=== PATIENT | female | born 1940 | race Caucasian/White ===

== ENCOUNTER 2022-10-31 09:32 | Emergency (ER) | payer MEDICARE ==
[~2022-10-31] VITALS: Ht 165.1 cm; Wt 66.2 kg
[2022-10-31] MEDS ORDERED: CALCITRIOL0.25 MC4 PO (10:22)
[2022-10-31] MEDS ORDERED: ALLOPURINOL100 M1 PO (10:22)
[2022-10-31] MEDS ORDERED: CATAPRES-TTS 11 EAC1 TOP (10:22)
[2022-10-31] MEDS ORDERED: PREGABALIN75 MG PO (10:22)
[2022-10-31] MEDS ORDERED: SITA100T2 PO (10:22)
[2022-10-31] MEDS ORDERED: AMLODIPINE BESY10 MG PO (10:22)
[2022-10-31] MEDS ORDERED: HYDCHL25 PO (10:23)
== END 2022-10-31 11:30 | disposition home or self-care (01) ==
LOC: ER 09:32
DX: M25.561 Pain in right knee (principal); X50.1XXA Overexertion from prolonged static or awkward postures, initial encounter; Z88.2 Allergy status to sulfonamides; Z79.899 Other long term (current) drug therapy
CPT/HCPCS: 99283

== ENCOUNTER 2023-01-24 17:17 | Inpatient (IN) | payer MEDICARE ==
[~2023-01-24] VITALS: Ht 162.6 cm; Wt 64.0 kg
[~2023-01-24 17:17] MED LIST: ALLOPURINOL100 M1 PO; AMLODIPINE BESY10 MG PO; CALCITRIOL0.25 MC4 PO; CATAPRES-TTS 11 EAC1 PO; HYDCHL25 PO; PREGABALIN75 MG PO; SITA100T2 PO
[2023-01-24 19:04] LABS: BASOPHILS ABSOLUTE AUTO 0.03 K/mm3 (0.00-0.23); BASOPHILS PERCENT AUTO 0 % (0-2); EOSINOPHILS ABSOLUTE AUTO 0.21 K/mm3 (0.00-0.68); EOSINOPHILS PERCENT AUTO 2 % (0-6); Hemoglobin 10.9 g/dL (11.5-16.0); IMMATURE GRAN ABSOLUTE AUTO 0.03 K/mm3 (0.00-0.10); IMMATURE GRAN PERCENT AUTO 0 % (0-1); LYMPHOCYTES ABSOLUTE AUTO 1.94 K/mm3 (0.84-5.20); LYMPHOCYTES PERCENT AUTO 21 % (21-46); MONOCYTES ABSOLUTE AUTO 0.95 K/mm3 (0.16-1.47); MONOCYTES PERCENT AUTO 10 % (4-13); Mean Corpuscular HGB 30.3 pg (26.0-34.0); Mean Corpuscular HGB Conc 32.1 g/dL (31.5-36.5); Mean Corpuscular Volume 94 fL (80-100); Mean Platelet Volume 10.8 fL (9.1-12.4); NEUTROPHILS ABSOLUTE AUTO 6.25 K/mm3 (1.96-9.15); NEUTROPHILS PERCENT AUTO 67 % (41-73); Platelet Count 331 K/mm3 (150-400); RDW Coefficient Variation 15.6 % (11.7-14.2); White Blood Cell Count 9.41 K/mm3 (4.00-11.30)
[2023-01-24 19:34] LABS: Albumin, Blood 3.2 g/dL (3.4-5.0); Albumin/Globulin Ratio 0.8 (0.8-1.8); Bilirubin, Total 0.5 mg/dL (0.1-1.0); Bun/Creatinine Ratio 23.7 (12.0-20.0); Calcium, Blood 7.9 mg/dL (8.5-10.1); Creatinine, Blood 1.77 mg/dL (0.40-1.00); Globulin, Blood 4.2 g/dL (2.2-4.0); Potassium, Blood 4.5 mmol/L (3.5-5.5); Total Protein, Blood 7.4 g/dL (6.4-8.2)
[2023-01-24] MEDS ORDERED: Simvastatin40 MG PO (20:42)
[2023-01-24] MEDS ORDERED: LOSA25 PO (20:43)
[2023-01-24 21:05] LABS: International Normalized Ratio 1.04; Prothrombin Time Results 10.9 Sec (9.7-11.5)
[2023-01-24 21:39] LABS: Anti-Xa UFH, PHA Monitoring <0.10 IU/mL
[2023-01-24 22:28] VITALS: BP 128/80
[2023-01-24] MEDS ORDERED: CATAPRES0.1 MG PO (23:16)
[2023-01-25] VITALS (12 sets, daily range): BP systolic 11–127; BP diastolic 57–73
[2023-01-25 04:50] LABS: Hematocrit 33.1 % (33.0-51.0); Hemoglobin 10.4 g/dL (11.5-16.0); Mean Corpuscular HGB 29.6 pg (26.0-34.0); Mean Corpuscular HGB Conc 31.4 g/dL (31.5-36.5); Mean Corpuscular Volume 94 fL (80-100); Mean Platelet Volume 10.7 fL (9.1-12.4); Platelet Count 283 K/mm3 (150-400); RDW Coefficient Variation 15.3 % (11.7-14.2); Red Blood Cell Count 3.51 M/mm3 (3.80-5.20); White Blood Cell Count 7.17 K/mm3 (4.00-11.30)
--- NOTE | 2023-01-25 05:02 | NUR ---
TRANSFER OF CARE NOTE/SHIFT SUMMARY RECEIVED REPORT FROM ED RN WENDY ROMERO, PT SHORTLY ARRIVED TO PCU 14 ~ 2224 ON 01/24/23. ABLE TO STAND UP AND TRANSFER FROM [facility] TO HOSPITAL BED W/O ASSISTANCE. A/Ox4 AND COOPERATIVE WITH CARE PROVIDED BY MEMBERS OF STAFF. ANSWERS QUESTIONS APPROPRIATELY AND ABLE TO MAKE HER NEEDS KNOWN. CARDIAC DUNBAR, IN SR 70-80'S WITH C/O CP OR PRESSURE. SBP STABLE IN THE 120'S. RESPIRATORY DUNBAR, ARRIVED ON RA MAINTAINING SPO2 >94% WITH NO C/O SOB OR DYSPNEA. PT ON HEPARIN GTT THAT WAS STARTED IN THE ED. RATE RUNNING ORDERED VIA EMAR. DAYA JAVIER UPON ARRIVAL TO PCU. SHIFT SUMMARY NO ACUTE EVENTS SINCE ADMISSION. PT REMAINS A/Ox4 AND ABLE TO MAKE HER NEEDS KNOWN. HEPARIN GTT REMAINS ON AND IS RUNNING ORDERED VIA EMAR. NO C/O OF CP OR PRESSURE T/O THE NIGHT. REMAINS ON RA WITH NO C/O SOB OR DYSPNEA T/O THE NIGHT. UNABLE TO CALL IN CARDIOLOGY CONSULT IN AT THIS TIME DUE TO OLD CARDIOLOGY PHONE NUMBER NOT WORKING. CARDIOPULMONARY TECHNOLOGIST LAUREN MADE AWARE OF ISSUES WITH CONSULT. WILL PASS INFORMATION ALONG TO DAY SHIFT IN ORDER TO ENURE CONSULT IS CALLED IN. NO NEW ORDERS AT THIS TIME, WILL REPORT TO ONCOMING RN. YAYA STAPLETON T/O THE SHIFT
[2023-01-25 05:11] LABS: Bun/Creatinine Ratio 24.9 (12.0-20.0); Calcium, Blood 7.7 mg/dL (8.5-10.1); Creatinine, Blood 1.77 mg/dL (0.40-1.00); Magnesium, Blood 2.4 mg/dL (1.6-2.4); Potassium, Blood 3.9 mmol/L (3.5-5.5)
--- NOTE | 2023-01-25 07:15 | NUR ---
Bedside report received from SHILPA Cramer. Pt is awake, alert, with at the bedside. PT reports no chest pain or other symptoms throughout the night. Instructed to please call staff with call light if she has any discomfort, dyspnea, etc. She said that she would.
--- NOTE | 2023-01-25 07:24 | NUR ---
Dr. Longo here to see the patient.
[2023-01-25 07:32] LABS: CHOL/HDL RATIO 2.1; Cholesterol 124 mg/dL (50-200); HDL Cholesterol 59 mg/dL (>39); LDL/HDL RATIO 0.7; Low Density Lipoprotein Chol 39 mg/dL (0-110); Triglycerides 131 mg/dL (30-160); Very Low Density Lipoprot Chol 26 mg/dL (6-32)
--- NOTE | 2023-01-25 08:04 | NUR ---
Tech is here to do the echocardiogram.
--- NOTE | 2023-01-25 10:49 | NUR ---
EDUCATION NOTE PATIENT WAS VISITED BY THE PROVIDER AT BEDSIDE. THE PATIENT WAS GIVEN AN EXTENSIVE EDUCATION ON UT, CHF, CATH, AND RISK FACTORS ASSOCIATED WITH CARDIAC, VASCULAR, AND ARTERIAL CATH. THE PATIENT SEEMED TO UNDERSTAND CONCEPTS WELL.
--- NOTE | 2023-01-25 11:31 | NUR ---
Pt is gone to heart center for angiogram. Called pharmacy to notify that heparin gtt is stopped.
--- NOTE | 2023-01-25 13:38 | NUR ---
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
--- NOTE | 2023-01-25 18:46 | NUR ---
The pt is lying in bed, flat, and right groin site and right radial site are without bleeding, hematoma, swelling nor pain. She has a purewick in place as the bedrest continues until 2200. She reports no pain. Ate dinner with a good appetite and able to take oral medications without any difficulty.
[2023-01-26 00:10] VITALS: BP 130/62
[2023-01-26 04:01] VITALS: BP 126/66
[2023-01-26 04:04] LABS: BASOPHILS ABSOLUTE AUTO 0.03 K/mm3 (0.00-0.23); BASOPHILS PERCENT AUTO 0 % (0-2); EOSINOPHILS ABSOLUTE AUTO 0.24 K/mm3 (0.00-0.68); EOSINOPHILS PERCENT AUTO 3 % (0-6); Hematocrit 31.5 % (33.0-51.0); Hemoglobin 10.1 g/dL (11.5-16.0); IMMATURE GRAN ABSOLUTE AUTO 0.02 K/mm3 (0.00-0.10); IMMATURE GRAN PERCENT AUTO 0 % (0-1); LYMPHOCYTES ABSOLUTE AUTO 1.08 K/mm3 (0.84-5.20); LYMPHOCYTES PERCENT AUTO 14 % (21-46); MONOCYTES ABSOLUTE AUTO 0.62 K/mm3 (0.16-1.47); MONOCYTES PERCENT AUTO 8 % (4-13); Mean Corpuscular HGB Conc 32.1 g/dL (31.5-36.5); Mean Corpuscular Volume 94 fL (80-100); Mean Platelet Volume 10.3 fL (9.1-12.4); NEUTROPHILS ABSOLUTE AUTO 5.62 K/mm3 (1.96-9.15); NEUTROPHILS PERCENT AUTO 74 % (41-73); Platelet Count 262 K/mm3 (150-400); RDW Coefficient Variation 15.3 % (11.7-14.2); RDW Standard Deviation 52.3 fL (35.1-46.3); Red Blood Cell Count 3.37 M/mm3 (3.80-5.20); White Blood Cell Count 7.61 K/mm3 (4.00-11.30)
[2023-01-26 04:32] LABS: Calcium, Blood 7.7 mg/dL (8.5-10.1); Creatinine, Blood 1.64 mg/dL (0.40-1.00); Potassium, Blood 3.9 mmol/L (3.5-5.5)
--- NOTE | 2023-01-26 06:29 | NUR ---
Both right radial and groin site have been stable overnight with no changes. Some old blood on groin bandage. Pt has not wanted to get OOB this shift, has used periwick overnight. No complaints of CP or discomfort. VSS. Pt reports sleeping well overnight. Pt is able to make needs known, call light is within reach.
[2023-01-26 07:34] VITALS: BP 135/69
--- NOTE | 2023-01-26 09:03 | NUR ---
Both Dr. Portillo and Dr. Longo have rounded on the patient. The pt will not be discharging today. Changes to medications to be made and pt followed for at least one day.
--- NOTE | 2023-01-26 10:01 | NUR ---
Fe reports that she has no symptoms, no discomfort nor dyspnea except for some right lower rib stiffness which she states is going away. She is lying in bed now, having just taken her morning medications.
[2023-01-26 11:15] VITALS: BP 128/61
[2023-01-26] MEDS ORDERED: ATOR80 PO (11:55)
[2023-01-26] MEDS ORDERED: CLOP75 PO (11:57)
[2023-01-26] MEDS ORDERED: METO50ER PO (11:57)
[2023-01-26] MEDS ORDERED: ASPI81CH PO (11:58)
[2023-01-26 15:40] VITALS: BP 126/78
--- NOTE | 2023-01-26 17:29 | NUR ---
Pt up independently to chair for dinner. Reports no symptoms.
[2023-01-26 20:26] VITALS: BP 130/61
[2023-01-27 02:39] VITALS: BP 124/51
[2023-01-27 04:07] LABS: BASOPHILS ABSOLUTE AUTO 0.03 K/mm3 (0.00-0.23); BASOPHILS PERCENT AUTO 0 % (0-2); EOSINOPHILS ABSOLUTE AUTO 0.18 K/mm3 (0.00-0.68); EOSINOPHILS PERCENT AUTO 2 % (0-6); Hematocrit 31.1 % (33.0-51.0); Hemoglobin 10.2 g/dL (11.5-16.0); IMMATURE GRAN ABSOLUTE AUTO 0.03 K/mm3 (0.00-0.10); IMMATURE GRAN PERCENT AUTO 0 % (0-1); LYMPHOCYTES ABSOLUTE AUTO 1.07 K/mm3 (0.84-5.20); LYMPHOCYTES PERCENT AUTO 13 % (21-46); MONOCYTES ABSOLUTE AUTO 0.68 K/mm3 (0.16-1.47); MONOCYTES PERCENT AUTO 8 % (4-13); Mean Corpuscular HGB 30.1 pg (26.0-34.0); Mean Corpuscular HGB Conc 32.8 g/dL (31.5-36.5); Mean Corpuscular Volume 92 fL (80-100); Mean Platelet Volume 10.7 fL (9.1-12.4); NEUTROPHILS ABSOLUTE AUTO 6.27 K/mm3 (1.96-9.15); NEUTROPHILS PERCENT AUTO 76 % (41-73); Platelet Count 293 K/mm3 (150-400); RDW Coefficient Variation 15.1 % (11.7-14.2); RDW Standard Deviation 50.6 fL (35.1-46.3); Red Blood Cell Count 3.39 M/mm3 (3.80-5.20); White Blood Cell Count 8.26 K/mm3 (4.00-11.30)
[2023-01-27 04:27] LABS: Bun/Creatinine Ratio 25.3 (12.0-20.0); Calcium, Blood 8.6 mg/dL (8.5-10.1); Creatinine, Blood 1.98 mg/dL (0.40-1.00); Potassium, Blood 4.1 mmol/L (3.5-5.5)
--- NOTE | 2023-01-27 05:45 | NUR ---
PT WITHOUT ISSUE, RIGHT RADIAL SITE BRUISED, SOFT, ARM BOARD IN PLACE, R GROIN SOFT, GAUZE AND TEGADERM DRESSING IN PLACE WITH SCANT OLD, DRIED BLOOD, PT DID GET TACHYCARDIC INTO THE LOW 120'S WHEN AMBULATING TO THE BATHROOM BUT PT DENIED FEELING ANY DISTRESS
[2023-01-27 07:16] VITALS: BP 137/64
--- NOTE | 2023-01-27 12:02 | NUR ---
Pt continues to deny symptoms. Sitting up eating lunch at this time. Ongoing 1/2 NS infusion has 300 cc/500cc completed at this time.
[2023-01-27 16:30] VITALS: BP 140/65
--- NOTE | 2023-01-27 17:16 | NUR ---
The pt was assisted with a shower. States that she felt great throughout the shower, and has had no symptoms today whatsoever. Appetite and oral fluid intake good today. Walking to the bathroom to void.
[2023-01-27 20:17] VITALS: BP 122/58
[2023-01-28 04:25] VITALS: BP 122/64
[2023-01-28 04:51] LABS: BASOPHILS ABSOLUTE AUTO 0.02 K/mm3 (0.00-0.23); BASOPHILS PERCENT AUTO 0 % (0-2); EOSINOPHILS ABSOLUTE AUTO 0.13 K/mm3 (0.00-0.68); EOSINOPHILS PERCENT AUTO 2 % (0-6); Hematocrit 28.4 % (33.0-51.0); Hemoglobin 9.2 g/dL (11.5-16.0); IMMATURE GRAN ABSOLUTE AUTO 0.02 K/mm3 (0.00-0.10); IMMATURE GRAN PERCENT AUTO 0 % (0-1); LYMPHOCYTES ABSOLUTE AUTO 1.22 K/mm3 (0.84-5.20); LYMPHOCYTES PERCENT AUTO 19 % (21-46); MONOCYTES ABSOLUTE AUTO 0.74 K/mm3 (0.16-1.47); MONOCYTES PERCENT AUTO 12 % (4-13); Mean Corpuscular HGB 29.9 pg (26.0-34.0); Mean Corpuscular HGB Conc 32.4 g/dL (31.5-36.5); Mean Corpuscular Volume 92 fL (80-100); Mean Platelet Volume 10.9 fL (9.1-12.4); NEUTROPHILS PERCENT AUTO 67 % (41-73); Platelet Count 240 K/mm3 (150-400); RDW Coefficient Variation 15.2 % (11.7-14.2); RDW Standard Deviation 50.5 fL (35.1-46.3); Red Blood Cell Count 3.08 M/mm3 (3.80-5.20); White Blood Cell Count 6.43 K/mm3 (4.00-11.30)
[2023-01-28 05:13] LABS: Bun/Creatinine Ratio 23.1 (12.0-20.0); Calcium, Blood 8.7 mg/dL (8.5-10.1); Creatinine, Blood 2.42 mg/dL (0.40-1.00); Potassium, Blood 4.3 mmol/L (3.5-5.5)
[2023-01-28 07:16] VITALS: BP 91/72; BP 97/72
[2023-01-28 11:16] VITALS: BP 104/55
[2023-01-28 17:02] VITALS: BP 135/70
--- NOTE | 2023-01-28 18:16 | NUR ---
PT A/O X4. DENIES CP OR SOB T/O THE DAY. ANSWERING QUESTIONS IN FULL SENTENCES. VSS, WITH A SOFT PRESSURE THIS AM. PT WITH LR INFUSING AT 75ML/HR AT THIS TIME. PT INDEPENADNT IN THE ROOM, UP TO SHOWER THIS AM. BLOOD SUGARS WITH GOOD CONTROL REQUIRED COVERAGE ONCE THIS SHIFT. PT HAS BEEN RESTING WELL TODAY. WILL OBSERVE TODAY GFR HAS WORSENED, PLAN TO RECHECK LABS IN THE AM AND CONTINUE TO MONITOR
[2023-01-29 04:42] VITALS: BP 119/57
--- NOTE | 2023-01-29 04:43 | NUR ---
PT COMPLETED THE LITER OF LR, INDEPENDENT TO BATHEROOM, AFEBRILE, NO ISSUES OVERNIGHT, VSS, LABS PENDING THIS AM
[2023-01-29 05:24] LABS: Bun/Creatinine Ratio 25.7 (12.0-20.0); Calcium, Blood 8.4 mg/dL (8.5-10.1); Creatinine, Blood 2.22 mg/dL (0.40-1.00); Potassium, Blood 4.6 mmol/L (3.5-5.5)
[2023-01-29 08:47] VITALS: BP 123/57
--- NOTE | 2023-01-29 16:48 | NUR ---
PT EXPRESSED UNDERSTANDING OF DC TEACHING, DENIES FURTHER QUESTIONS. [facility] PER REQUEST OF FAMILY AND FAMILY IS AWARE OF THIS. IV REMOVED AND PRESSURE DRESSED. PT EDUCATED WELL ABOUT ANGIO SITES, SHE EXPRESSED UNDERSTANDING OF TEACHING
== END 2023-01-29 12:30 | disposition home or self-care (01) | DRG 247 ==
LOC: ER 17:17 → PCU 21:32
PROVIDERS: Emergency Medicine; Internal Medicine; Internal Medicine Cardiovascular Disease; Nurse Practitioner Acute Care; Physician Assistant; ADMIT Student in an Organized Health Care Education/Training Program
PROC: 027034Z Dilation of Coronary Artery, One Artery with Drug-eluting Intraluminal Device, Percutaneous Approach (ICD-10-PCS; principal; 2023-01-25)
PROC: 4A023N7 Measurement of Cardiac Sampling and Pressure, Left Heart, Percutaneous Approach (ICD-10-PCS; 2023-01-25)
PROC: B211YZZ Fluoroscopy of Multiple Coronary Arteries using Other Contrast (ICD-10-PCS; 2023-01-25)
PROC: B215YZZ Fluoroscopy of Left Heart using Other Contrast (ICD-10-PCS; 2023-01-25)
PROC: B24BZZ3 Ultrasonography of Heart with Aorta, Intravascular (ICD-10-PCS; 2023-01-25)
DX: I21.4 Non-ST elevation (NSTEMI) myocardial infarction (principal); I13.0 Hypertensive heart and chronic kidney disease with heart failure and stage 1 through stage 4 chronic kidney disease, or unspecified chronic kidney disease; N17.9 Acute kidney failure, unspecified; N18.4 Chronic kidney disease, stage 4 (severe); I50.22 Chronic systolic (congestive) heart failure; E11.22 Type 2 diabetes mellitus with diabetic chronic kidney disease; I25.10 Atherosclerotic heart disease of native coronary artery without angina pectoris; D63.1 Anemia in chronic kidney disease; M10.9 Gout, unspecified; E11.40 Type 2 diabetes mellitus with diabetic neuropathy, unspecified; E78.5 Hyperlipidemia, unspecified; Z90.5 Acquired absence of kidney; Z96.652 Presence of left artificial knee joint; Z86.73 Personal history of transient ischemic attack (TIA), and cerebral infarction without residual deficits; Z88.0 Allergy status to penicillin; Z88.2 Allergy status to sulfonamides; Z98.890 Other specified postprocedural states; Z79.899 Other long term (current) drug therapy
CPT/HCPCS: 36415; 71046; 76937; 80048; 80053; 80061; 82947; 83036; 83735; 83880; 84484; 85025; 85027; 85347; 85520; 85610; 85730; 92978; 93005; 93010; 96365; 96375; 99152; 99153; 99285-25; A9270; C1725; C1753; C1769; C1874; C1887; C1894; C8929; C9600; J1644; J1940; J2250; J3010; J7030; J7040; J7050; J7120; Q9957; Q9967

== ENCOUNTER 2023-09-07 09:25 | Emergency (ER) | payer MEDICARE, OTHER ==
[~2023-09-07] VITALS: Ht 162.6 cm; Wt 69.0 kg
[~2023-09-07 09:25] MED LIST changes: +ASPI81CH PO; +ATOR80 PO; +CATAPRES0.1 MG PO; +CLOP75 PO; +LOSA25 PO; +METO50ER PO; +Simvastatin40 MG PO
[2023-09-07 09:49] VITALS: BP 136/75
== END 2023-09-07 10:44 | disposition home or self-care (01) ==
LOC: ER 09:25
DX: R07.81 Pleurodynia (principal); I10 Essential (primary) hypertension; E11.9 Type 2 diabetes mellitus without complications; Z79.82 Long term (current) use of aspirin; Z79.02 Long term (current) use of antithrombotics/antiplatelets; Z79.899 Other long term (current) drug therapy; Z88.0 Allergy status to penicillin; Z88.2 Allergy status to sulfonamides; W01.10XA Fall on same level from slipping, tripping and stumbling with subsequent striking against unspecified object, initial encounter; Y93.89 Activity, other specified
CPT/HCPCS: 71101; 99283-25